=== PATIENT | male | born 1950 | race Two or more races ===

== ENCOUNTER 2021-01-08 08:00 | Outpatient (RCR) | payer OTHER, MEDICARE, SELFPAY ==
[2021-01-08] MEDS: COVID-19 VACC, MRNA(PFIZER)/PF 30 MCG/0.3 ML SYRINGE IM (18:32)
[2021-01-29] MEDS: COVID-19 VACC, MRNA(PFIZER)/PF 30 MCG/0.3 ML SYRINGE IM (17:50)
== END 2021-04-09 23:59 ==
LOC: IMMUN 08:00
PROVIDERS: PCP Family Medicine; Referring Provider Family Medicine; Visit Provider Family Medicine
DX: Z23 Encounter for immunization (principal)
CPT/HCPCS: 0001A; 0002A; 91300